=== PATIENT | male | born 1940 | race Caucasian/White ===

== ENCOUNTER 2020-08-23 13:05 | Observation (INO) | payer MEDICARE, OTHER ==
[~2020-08-23] VITALS: Ht 182.9 cm; Wt 77.1 kg
[~2020-08-23 13:05] MED LIST: ANTIVERT 25MG T25 MG PO
[2020-08-23 14:29] LABS: RED BLOOD COUNT 4.82 M/UL (4.20-5.50); WHITE BLOOD COUNT 12.2 K/UL (4.5-11.0)
[2020-08-23 14:57] LABS: BUN/CREATININE RATIO 12 (0-10)
[2020-08-23] MEDS ORDERED: TOPROL XL 100100 MG PO (21:15)
[2020-08-23] MEDS ORDERED: ZESTRIL 40 MG T40 MG PO (21:16)
[2020-08-23] MEDS ORDERED: CATAPRES 0.1MG0.1 MG PO (21:17)
[2020-08-23] MEDS ORDERED: MULTAQ400 MG PO (21:18)
[2020-08-23] MEDS ORDERED: LIPITOR10 MG PO (21:18)
[2020-08-23] MEDS ORDERED: ACID CONTROLLER20 MG PO (21:18)
[2020-08-23] MEDS ORDERED: VISTARIL 25 MG25 MG PO (21:20)
[2020-08-23] MEDS ORDERED: ASPIRIN EC81 MG PO (21:21)
[2020-08-23] MEDS ORDERED: CARDURA4 MG PO (21:23)
--- NOTE | 2020-08-23 21:30 | NUR ---
SURGERY VITALS DID NOT ROLL OVER, RESTARTED AT 2100. NO S/SX OF PAIN, DISCOMFORT, OR DISTRESS. BED LOCKED AND LOW. CALL LIGHT WITHIN REACH.
[2020-08-25] MEDS ORDERED: SENNA LAX8.6 MG PO (10:15)
[2020-08-25] MEDS ORDERED: DOCUSATE SODIU100 MG PO (10:15)
== END 2020-08-25 14:56 | disposition home or self-care (01) ==
LOC: ER1 13:05 → M/S 17:25 → CDU 17:25 → M/S 20:10
PROVIDERS: Emergency Medicine; ADMIT Surgery
DX: K35.30 Acute appendicitis with localized peritonitis, without perforation or gangrene (principal); I25.10 Atherosclerotic heart disease of native coronary artery without angina pectoris; I10 Essential (primary) hypertension; E78.5 Hyperlipidemia, unspecified; K21.9 Gastro-esophageal reflux disease without esophagitis; M19.90 Unspecified osteoarthritis, unspecified site; Z95.5 Presence of coronary angioplasty implant and graft; Z20.822 Contact with and (suspected) exposure to COVID-19; Z79.82 Long term (current) use of aspirin; Z79.899 Other long term (current) drug therapy
CPT/HCPCS: 80053; 81001; 82550; 82553; 83690; 83874; 84484; 85025; 87635; 93005; 96365; 96367; 96375; 99285; G0378; J0690; J1100; J1335; J2001; J2405; J2704; J2765; J3010; J7030; J7120; Q0177; Q9967

== ENCOUNTER 2021-08-18 15:04 | Emergency (ER) | payer MEDICARE, OTHER ==
[~2021-08-18 15:04] MED LIST changes: +ACID CONTROLLER20 MG PO; +ASPIRIN EC81 MG PO; +CARDURA4 MG PO; +CATAPRES 0.1MG0.1 MG PO; +DOCUSATE SODIU100 MG PO; +LIPITOR10 MG PO; +MULTAQ400 MG PO; +SENNA LAX8.6 MG PO; +TOPROL XL 100100 MG PO; +VISTARIL 25 MG25 MG PO; +ZESTRIL 40 MG T40 MG PO
[2021-08-18 16:10] LABS: RED BLOOD COUNT 4.6 M/UL (4.20-5.50); WHITE BLOOD COUNT 6.5 K/UL (4.5-11.0)
[2021-08-18 16:22] LABS: BUN/CREATININE RATIO 12 (0-10)
== END 2021-08-18 19:40 | disposition home or self-care (01) ==
LOC: ER1 15:04
PROVIDERS: Emergency Medicine
DX: N40.0 Benign prostatic hyperplasia without lower urinary tract symptoms (principal); E27.8 Other specified disorders of adrenal gland; I11.9 Hypertensive heart disease without heart failure; E78.5 Hyperlipidemia, unspecified
CPT/HCPCS: 80053; 81001; 82550; 82553; 83605; 83690; 84484; 85025; 96374; 96375; 99284; J2270; J2405; Q9967

== ENCOUNTER → 2021-12-28 | Outpatient (CLI) | payer MEDICARE, OTHER | LOC: KOH-I 12:34 | DX: M25.572 Pain in left ankle and joints of left foot (principal); M19.072 Primary osteoarthritis, left ankle and foot | CPT/HCPCS: 73610; 73630 ==